=== PATIENT | male | born 1960 | race Caucasian/White ===

== ENCOUNTER 2023-01-08 03:27 | Outpatient (CLI) | payer MEDICARE, MEDICAID, SELFPAY ==
[2023-01-08 10:13] LABS: Abs Immature Grans 0.02 10^3/uL (0.0-0.06); Absolute Basophil Count 0.02 10^3/uL (0.0-0.2); Absolute Eosinophil Count 0.06 10^3/uL (0.0-0.7); Absolute Lymphocyte Count 2.13 10^3/uL (1.2-3.4); Absolute Monocyte Count 0.45 10^3/uL (0.1-0.8); Absolute Neutrophil Count 2.55 10^3/uL (1.2-6.7); Basophils % 0.4; Eosinophils % 1.1; HCT 46.2 % (40.0-50.0); HGB 15.2 g/dL (13.5-17.5); Immature Grans % 0.4; Lymphocytes % 40.7; MCH 30.1 pg (27.0-33.0); MCHC 32.9 % (32.0-36.0); MCV 92 fL (80-95); MPV 9.7 fL (8.0-11.0); Monocytes % 8.6; Neutrophils % 48.8; Platelet Count 169 10^3/uL (130-400); RBC 5.05 10^6/uL (4.36-5.78); RDW 12.9 % (11.8-14.1); WBC 5.23 10^3/uL (4.4-10.8)
[2023-01-08 10:38] LABS: ALT 42 U/L (16-63); AST 29 U/L (15-37); Albumin 3.7 g/dL (3.4-5.0); Alkaline Phosphatase 75 U/L (46-116); Anion Gap 6.7 mmol/L (3-11); BUN 13 mg/dL (7-18); Bilirubin, Total 0.3 mg/dL (0.2-1.0); CO2 29.3 mmol/L (21.0-32.0); CREATININE 1.1 mg/dL (0.70-1.30); Calcium 9.2 mg/dL (8.5-10.1); Chloride 107 mmol/L (98-107); Estimated GFR 74.96 (mL/min/1.73m2); Glucose 141 mg/dL (74-106); Potassium 4.6 mmol/L (3.5-5.1); Sodium 143 mmol/L (136-145); Total Protein 7.5 g/dL (6.4-8.2)
[2023-01-09 12:34] LABS: HIV 1 RNA Qualitative Undetected copies/mL (Undetected)
[2023-01-10 09:30] LABS: 4/8 Ratio 0.39 (>=0.90); Absolute CD3 1912 Cells/uL (840-2669); Absolute CD8 1432 Cells/uL (154-1097); CD3 76 % (56-84); CD4 22 % (31-64); CD8 57 % (9-39)
== END 2023-01-08 03:28 | disposition home or self-care (01) ==
LOC: LBO 03:27
PROVIDERS: PCP Internal Medicine; Visit Provider Nurse Practitioner Family
DX: B20 Human immunodeficiency virus [HIV] disease (principal); Z79.899 Other long term (current) drug therapy
CPT/HCPCS: 36415; 80053; 87389; 87536; 85025; 86359; 86360